=== PATIENT | male | born 1990 | race American Indian/Alaskan Native ===

== ENCOUNTER 2017-11-02 18:36 | Emergency (ER) | payer MEDICAID, OTHER ==
[~2017-11-02] VITALS: Ht 175.3 cm; Wt 82.0 kg
[2017-11-02] MEDS ORDERED: IBUPROFEN 600MG TABLET PO ONE (21:00)
[2017-11-02 21:37] VITALS: BP 135/80
== END 2017-11-02 21:38 | disposition home or self-care (01) ==
LOC: ER 18:36
DX: M62.830 Muscle spasm of back (principal); M62.838 Other muscle spasm; J45.909 Unspecified asthma, uncomplicated; F12.10 Cannabis abuse, uncomplicated; V49.9XXA Car occupant (driver) (passenger) injured in unspecified traffic accident, initial encounter; Y93.89 Activity, other specified; Y92.89 Other specified places as the place of occurrence of the external cause; Y99.8 Other external cause status
CPT/HCPCS: 99282

== ENCOUNTER 2018-02-25 11:55 | Emergency (ER) | payer MEDICAID ==
[~2018-02-25] VITALS: Ht 175.3 cm; Wt 75.0 kg
[2018-02-25 12:14] VITALS: BP 133/69
[2018-02-25] MEDS ORDERED: NAPROXEN 250MG TABLET PO ONE (15:00)
== END 2018-02-25 15:26 | disposition home or self-care (01) ==
LOC: ER 11:55
DX: M79.641 Pain in right hand (principal); J45.909 Unspecified asthma, uncomplicated; F12.10 Cannabis abuse, uncomplicated
CPT/HCPCS: 99282

== ENCOUNTER 2018-04-13 04:27 | Emergency (ER) | payer MEDICAID ==
[~2018-04-13] VITALS: Ht 182.9 cm; Wt 72.6 kg
[~2018-04-13 04:27] MED LIST: MORPHINE SULFATE 4 MG/ML CPJ (NOT FOR IM USE) IV PRN; ONDANSETRON HCL 4MG/2ML INJ IV PRN; SODIUM CHLORIDE 0.9% 1,000 ML IV SCH
[2018-04-13 07:42] LABS: BASOPHILS % 0.7 % (0.0-2.0); EOSINOPHILS % 1.3 % (0.0-5.0); HEMATOCRIT. 44.9 % (42.0-52.0); HEMOGLOBIN. 14.9 g/dL (14.0-18.0); MEAN CORPUSCULAR HEMOGLOBIN 30.7 pg (28.0-32.0); MEAN CORPUSCULAR VOLUME 92.3 fL (80.0-94.0); MEAN PLATELET VOLUME 9.4 fl (7.4-10.4); MONOCYTES % 5.3 % (2.0-8.0); NEUTROPHILS % 80.7 % (40.0-76.0); PLATELET 289 x1000/uL (130-400); RED BLOOD CELL COUNT 4.86 mill/uL (4.7-6.1); RED CELL DISTRIBUTION WIDTH 13.4 % (11.6-14.6)
[2018-04-13 07:45] LABS: CHLORIDE 106 mEq/L (98-107)
[2018-04-13 07:53] LABS: PROTHROMBIN TIME 10.1 sec (9.1-11.1)
[2018-04-13] MEDS ORDERED: POTASSIUM CHLORIDE INJ 40 MEQ in DEXT 5% WATER 250 ML IV SCH (09:00)
[2018-04-13 10:20] LABS: CLARITY URINE CLEAR (CLEAR); COLOR URINE YELLOW (YELLOW); KETONES URINE 1+ (NEGATIVE); LEUKOCYTE ESTERASE URINE NEGATIVE (NEGATIVE); NITRITE URINE NEGATIVE (NEGATIVE); OCCULT BLOOD URINE NEGATIVE (NEGATIVE); PH URINE 6.5 (4.5-8.0); PROTEIN URINE NEGATIVE (NEGATIVE); SPECIFIC GRAVITY URINE 1.031 (1.005-1.030); UROBILINOGEN URINE 0.2 E.U./dL (0.2-1.0)
[2018-04-13] MEDS ORDERED: POTASSIUM CHLORIDE 20MEQ TABLET SR PO ONE (10:45)
[2018-04-13 13:55] VITALS: BP 114/45
== END 2018-04-13 14:01 | disposition home or self-care (01) ==
LOC: ER 04:27
DX: R10.13 Epigastric pain (principal); R11.2 Nausea with vomiting, unspecified; E87.6 Hypokalemia; D72.829 Elevated white blood cell count, unspecified; R74.8 Abnormal levels of other serum enzymes
CPT/HCPCS: 36415; 74177; 80053; 81003; 83690; 85025; 85610; 96365; 99284; J2270; J2405; J3480; J7060

== ENCOUNTER 2020-08-12 01:08 | Emergency (ER) | payer MEDICAID, OTHER ==
[~2020-08-12] VITALS: Ht 172.7 cm; Wt 73.0 kg
[2020-08-12] MEDS ORDERED: ALBUTEROL (0.083%) 2.5MG/3ML NEB HHN STA (01:47)
[2020-08-12] MEDS ORDERED: IPRATROPIUM BROMIDE (0.02%) 0.5MG/2.5ML NEB HHN STA (01:47)
[2020-08-12] MEDS ORDERED: METHYLPREDNISOLONE SOD SUCC 125 MG/2 ML VIAL IV STA (01:47)
[2020-08-12] MEDS ORDERED: SODIUM CHLORIDE 0.9% 1,000 ML IV ONE (02:00)
[2020-08-12 02:19] LABS: BASOPHILS % 0.6 % (0.0-2.0); EOSINOPHILS % 1.2 % (0.0-5.0); HEMATOCRIT. 44.9 % (42.0-52.0); LYMPHOCYTES % 14.8 % (20.0-50.0); MEAN CORPUSCULAR HEMOGLOBIN 34.1 pg (28.0-32.0); MEAN CORPUSCULAR VOLUME 95.7 fL (80.0-94.0); MEAN PLATELET VOLUME 8.3 fl (7.4-10.4); MONOCYTES % 11.5 % (2.0-8.0); NEUTROPHILS % 71.9 % (40.0-76.0); PLATELET 224 x1000/uL (130-400); RED BLOOD CELL COUNT 4.69 mill/uL (4.7-6.1); RED CELL DISTRIBUTION WIDTH 12.6 % (11.6-14.6)
[2020-08-12 02:24] LABS: CHLORIDE 97 mEq/L (98-107)
[2020-08-12] MEDS ORDERED: PRED10TA23 MT (05:45)
[2020-08-12] MEDS ORDERED: ALBU6.7H9 INH (05:45)
[2020-08-12 06:16] VITALS: BP 125/67
== END 2020-08-12 06:17 | disposition home or self-care (01) ==
LOC: ER 01:08
DX: J45.901 Unspecified asthma with (acute) exacerbation (principal); F17.200 Nicotine dependence, unspecified, uncomplicated; Z20.822 Contact with and (suspected) exposure to COVID-19
CPT/HCPCS: 36415; 71045; 80053; 85025; 93005; 94640; 96374; 99285; C9803; J2930; J7030; U0003; U0005; Z7610

== ENCOUNTER 2022-07-03 02:05 | Emergency (ER) | payer OTHER ==
[~2022-07-03] VITALS: Ht 175.3 cm; Wt 73.0 kg
[~2022-07-03 02:05] MED LIST changes: +ALBU6.7H3 INH; -MORPHINE SULFATE 4 MG/ML CPJ (NOT FOR IM USE) IV PRN; -ONDANSETRON HCL 4MG/2ML INJ IV PRN; +PRED10TA23 MT; -SODIUM CHLORIDE 0.9% 1,000 ML IV SCH
[2022-07-03 02:14] VITALS: BP 127/84
[2022-07-03] MEDS ORDERED: KETOROLAC 60MG/2ML VIAL IM STA (03:10)
[2022-07-03] MEDS ORDERED: IBUP-2029 PO (04:22)
== END 2022-07-03 04:45 | disposition home or self-care (01) ==
LOC: ER 02:05
DX: S60.012A Contusion of left thumb without damage to nail, initial encounter (principal); X58.XXXA Exposure to other specified factors, initial encounter; Y93.89 Activity, other specified; Y92.89 Other specified places as the place of occurrence of the external cause; Y99.8 Other external cause status
CPT/HCPCS: 29125; 73130; 96372; 99283; J1885

== ENCOUNTER 2022-10-05 08:53 | Emergency (ER) | payer OTHER ==
[~2022-10-05] VITALS: Ht 177.8 cm; Wt 73.0 kg
[~2022-10-05 08:53] MED LIST changes: +IBUP-2029 PO
[2022-10-05 09:03] VITALS: BP 151/107; PULSE 66; RESP 18; TEMP 98.6; O2SAT 98
[2022-10-05] MEDS ORDERED: ALBU18HF2 IH (10:48)
[2022-10-05] MEDS ORDERED: CYCL5TAB PO (10:48)
[2022-10-05] MEDS ORDERED: NAPR-681 PO (10:48)
== END 2022-10-05 11:17 | disposition home or self-care (01) ==
LOC: ER 09:41
DX: S20.211A Contusion of right front wall of thorax, initial encounter (principal); W10.9XXA Fall (on) (from) unspecified stairs and steps, initial encounter; Y93.89 Activity, other specified; Y92.89 Other specified places as the place of occurrence of the external cause; Y99.8 Other external cause status; J45.909 Unspecified asthma, uncomplicated
CPT/HCPCS: 71100; 99283

== ENCOUNTER 2024-05-10 04:09 | Emergency (ER) | payer OTHER ==
[~2024-05-10] VITALS: Ht 175.3 cm; Wt 74.0 kg
[~2024-05-10 04:09] MED LIST changes: +ALBU18HF2 IH; +CYCL5TAB3 PO; +NAPR-681 PO
[2024-05-10 04:16] VITALS: O2SAT 98
[2024-05-10] MEDS ORDERED: BO1 TP (06:51)
[2024-05-10 07:00] VITALS: BP 133/68; PULSE 95; RESP 18; TEMP 37; O2SAT 99
[2024-05-10 07:03] VITALS: TEMP 98.6
[2024-05-10] MEDS: ACETAMINOPHEN 325MG TABLET PO ONE (07:03)
== END 2024-05-10 07:22 | disposition home or self-care (01) ==
LOC: ER 04:09
DX: S60.511A Abrasion of right hand, initial encounter (principal); J45.909 Unspecified asthma, uncomplicated; Z79.899 Other long term (current) drug therapy; W25.XXXA Contact with sharp glass, initial encounter; Y93.89 Activity, other specified; Y92.89 Other specified places as the place of occurrence of the external cause; Y99.8 Other external cause status
CPT/HCPCS: 73130; 99283

== ENCOUNTER 2025-02-27 23:02 | Emergency (ER) | payer OTHER ==
[~2025-02-27] VITALS: Ht 175.3 cm; Wt 82.0 kg
[~2025-02-27 23:02] MED LIST changes: +BO1 TP; +IBUP-1455 PO; -IBUP-2029 PO
[2025-02-27 23:13] VITALS: PULSE 102; RESP 26; O2SAT 98
[2025-02-27] MEDS: ONDANSETRON HCL 4MG/2ML INJ IV ONE (23:18)
[2025-02-27] MEDS: MORPHINE SULFATE 4 MG/ML INJ (FOR IV/IM USE) IV ONE (23:18)
[2025-02-27] MEDS: ALBUTEROL (0.083%) 2.5MG/3ML NEB HHN ONE (23:19)
[2025-02-27] MEDS: TETANUS, DIPHTHERIA, PERTUSSIS VAC/PF 0.5ML (>10YR OLD) IM ONE (23:20)
[2025-02-27 23:41] LABS: CREATININE 1.2 mg/dL (0.6-1.3); INR 0.9; UREA NITROGEN BLOOD 13 mg/dL (9-23)
[2025-02-27 23:42] LABS: ETHANOL BLOOD 174 mg/dL (<10); PROTEIN TOTAL 7.6 g/dL (6.0-8.3)
[2025-02-27 23:43] VITALS: BP 146/93; PULSE 110; RESP 20; TEMP 36.8; O2SAT 98
[2025-02-27 23:43] LABS: ASPARTATE AMINOTRANSFERASE 29 IU/L (<34); BASOPHILS % 1.0 % (0.0-2.0); BILIRUBIN DIRECT < 0.1 mg/dL (<=3.0); EOSINOPHILS % 2.6 % (0.0-5.0); HEMATOCRIT. 44.8 % (42.0-52.0); HEMOGLOBIN. 14.7 g/dL (14.0-18.0); LYMPHOCYTES % 36.6 % (20.0-50.0); MEAN PLATELET VOLUME 8.5 fl (7.4-10.4); MONOCYTES % 6.0 % (2.0-8.0); NEUTROPHILS % 53.8 % (40.0-76.0); PLATELET 313 x1000/uL (130-400); RED BLOOD CELL COUNT 4.69 mill/uL (4.7-6.1); RED CELL DISTRIBUTION WIDTH 12.9 % (11.6-14.6)
[2025-02-27 23:44] LABS: BILIRUBIN TOTAL 0.3 mg/dL (0.1-1.0)
== END 2025-02-27 23:49 | disposition short-term general hospital (02) ==
LOC: ER 23:02 → CMPBEDREQ 02-28 10:36
DX: S00.83XA Contusion of other part of head, initial encounter (principal); S71.132A Puncture wound without foreign body, left thigh, initial encounter; S70.352A Superficial foreign body, left thigh, initial encounter; J45.909 Unspecified asthma, uncomplicated; F10.129 Alcohol abuse with intoxication, unspecified; W34.00XA Accidental discharge from unspecified firearms or gun, initial encounter; Y93.89 Activity, other specified; Y92.89 Other specified places as the place of occurrence of the external cause; Y99.8 Other external cause status
CPT/HCPCS: 80076; 80048; 80320; 83690; 85025; 85610; 85730; 86850; 86900; 86901; 36415; 73552; 71045; 72170; 73590; 90715; 94640; 93005; 98960; 90471; 96374; 96375; 99291; J2405; J2270; Z7610 ×3; 94070; 94664; G0480